=== PATIENT | female | born 1995 | race African-American/Black ===

== ENCOUNTER 2017-06-13 20:49 | Emergency (ER) | payer MEDICAID ==
[~2017-06-13] VITALS: Ht 167.6 cm; Wt 59.0 kg
[~2017-06-13 20:49] MED LIST: AZITHROMYCIN250 MG ORAL; DOXYCYCLINE MO100 MG ORAL; IBUPROFEN600 MG PO; METRONIDAZOLE500 MG ORAL; NKM
[2017-06-13 21:15] VITALS: BP 105/69
[2017-06-13] MEDS ORDERED: Tubing IV Cassette IV ONE (21:30)
[2017-06-13] MEDS ORDERED: Acetaminophen 500mg (ES) tab ORAL ONE (21:30)
--- NOTE | 2017-06-13 21:35 | Emergency Room Report ---
History of Present Illness General Chief Complaint: Female Urogenital Problems Source: Patient Present Illness HPI Is a 21-year-old female with no past medical history. She presents with complaint of fever and left flank pain. Days ago she has some hematuria. Now with some mild dysuria. Fever started today. Also with back pain that rate down her leg. Nausea but no vomiting. Cotter unwell. No diarrhea. No other complaint. Allergies: Coded Allergies: No Known Allergies (Unverified , 04/28/14) Patient History Past Medical History: see triage record, old chart reviewed Past Surgical History: none Pertinent Family History: none Social History: Denies: smoking Last Menstrual Period: 3 months ago Now: No Immunizations: other Reviewed Nursing Documentation: PMH: Agreed, PSxH: Agreed Nursing Documentation-PMH Hx Cardiac Problems: Yes - anemia Review of Systems Constitutional: Reports: fever, malaise Eye: Denies: eye pain, blurred vision ENT: Denies: ear pain, nose congestion, throat swelling Respiratory: Denies: cough, shortness of breath Cardiovascular: Denies: chest pain, palpitations Gastrointestinal: Denies: abdominal pain, diarrhea, nausea, vomiting Genitourinary: Reports: dysuria Musculoskeletal: Reports: back pain Skin: Denies: rash Neurological: Denies: headache, numbness Endocrine: Denies: increased thirst, increased urine Hematologic/Lymphatic: Denies: easy bruising All Other Systems: negative except mentioned in HPI Physical Exam Vital Signs Date Time Temp Pulse Resp B/P (MAP) Pulse Ox O2 Delivery O2 Flow Rate FiO2 06/13/17 21:00 99.7 106 16 105/69 98 Room Air vital low-grade fever Sp02 EP Interpretation: reviewed, normal General Appearance: well appearing, no apparent distress, alert Head: normocephalic, atraumatic Eyes: bilateral eye PERRL, bilateral eye EOMI ENT: hearing grossly normal, normal pharynx Neck: full range of motion, supple, no meningismus Respiratory: chest non-tender, lungs clear, normal breath sounds Cardiovascular #1: regular rate, rhythm, no murmur Gastrointestinal: normal bowel sounds, non tender, no mass, no organomegaly, no bruit, non-distended Genitourinary: CVA tenderness (L) Musculoskeletal: back normal, gait/station normal, normal range of motion Psychiatric: mood/affect normal Skin: warm/dry Medical Decision Making Diagnostic Impression: Primary Impression: Pyelonephritis ER Course Patient presents with symptoms consistent with pyelonephritis. No evidence of sepsis. Tolerating by mouth. Better now. Labs unremarkable. We'll discharge home. Lab Results Impression labs unremarkable Last Vital Signs Date Time Temp Pulse Resp B/P (MAP) Pulse Ox O2 Delivery O2 Flow Rate FiO2 06/13/17 21:00 99.7 106 16 105/69 98 Room Air Status: improved Disposition: HOME, SELF-CARE Condition: Stable Scripts Ibuprofen* (MOTRIN*) 600 Mg Tablet 600 MG ORAL Q8H Y for For Pain, #30 TAB 0 Refills Prov: SONDRA LOVING M.D. 06/13/17 Cephalexin* (KEFLEX*) 500 Mg Capsule 500 MG ORAL TID, #30 CAP 0 Refills Prov: SONDRA LOVING M.D. 06/13/17 Referrals: NOT CHOSEN [facility]/,REFERRING (PCP) Additional Instructions: Followup with your DrCristian in 7 days. Return if symptoms worsen. SONDRA LOVING M.D. Jun 13, 2017 21:35
[2017-06-13 21:40] LABS: EOSINOPHILS % (AUTO) 0.1 % (0.0-3.0); HEMATOCRIT 36.7 % (37.0-47.0); HEMOGLOBIN 11.6 G/DL (12.0-16.0); LYMPHOCYTES % (AUTO) 11.8 % (20.0-45.0); MEAN CORPUSCULAR VOLUME 93 FL (80-99); MONOCYTES % (AUTO) 11.5 % (1.0-10.0); NEUTROPHILS % (AUTO) 75.6 % (45.0-75.0); PLATELET COUNT 196 K/UL (150-450); RED BLOOD COUNT 3.96 M/UL (4.20-5.40); RED CELL DISTRIBUTION WIDTH 11.1 % (11.6-14.8); WHITE BLOOD COUNT 11.3 K/UL (4.8-10.8)
[2017-06-13 21:47] LABS: ANION GAP 10 mmol/L (5-15); BLOOD UREA NITROGEN 6 mg/dL (7-18); CARBON DIOXIDE 29 MMOL/L (21-32); CHLORIDE 100 MMOL/L (98-107); CREATININE 0.9 MG/DL (0.55-1.30); POTASSIUM 3.2 MMOL/L (3.5-5.1); SODIUM 138 MMOL/L (136-145)
[2017-06-13 21:50] LABS: BILIRUBIN, URINE NEGATIVE (NEGATIVE); GLUCOSE, URINE (UA) NEGATIVE (NEGATIVE); KETONES,URINE 3+ (NEGATIVE); LEUKOCYTE ESTERASE ,URINE 3+ (NEGATIVE); NITRITE,URINE NEGATIVE (NEGATIVE); PH,URINE 6 (4.5-8.0); PROTEIN,URINE 2+ (NEGATIVE); UROBILINOGEN,URINE NORMAL MG/DL (0.0-1.0)
[2017-06-13 21:52] LABS: APPEARANCE,URINE SLIGHTLY CLOUDY; COLOR,URINE YELLOW
[2017-06-13] MEDS ORDERED: cefTRIAXone 2 GM in NS 55 ML IVPB ONE (22:00)
[2017-06-13] MEDS ORDERED: IBUPROFEN600 MG ORAL (22:11)
[2017-06-13] MEDS ORDERED: KEFLEX500 MG ORAL (22:11)
[2017-06-13 22:23] VITALS: BP 94/60
[2017-06-13 23:00] VITALS: BP 94/60
== END 2017-06-13 23:00 | disposition home or self-care (01) ==
LOC: EMR 21:14
DX: N12 Tubulo-interstitial nephritis, not specified as acute or chronic (principal)
CPT/HCPCS: 36415; 80048; 81001; 81025; 85025; 87086; 87181; 96361; 96365; 99284; J0696